=== PATIENT | male | born 1955 | race Caucasian/White ===

== ENCOUNTER 2019-10-12 17:18 | Emergency (ER) | payer SELFPAY ==
[~2019-10-12] VITALS: Ht 160 cm; Wt 72.6 kg
[2019-10-12 17:21] VITALS: BP 154/83
[2019-10-12] MEDS ORDERED: LIDOCAINE MPF 1% 10 MG/ML VIAL INJ ONE (17:25)
[2019-10-12 18:15] VITALS: BP 154/83
== END 2019-10-12 18:16 | disposition home or self-care (01) ==
LOC: MED 17:18
DX: S61.211A Laceration without foreign body of left index finger without damage to nail, initial encounter (principal); F17.210 Nicotine dependence, cigarettes, uncomplicated; I10 Essential (primary) hypertension; W26.8XXA Contact with other sharp object(s), not elsewhere classified, initial encounter; Y93.89 Activity, other specified; Y92.89 Other specified places as the place of occurrence of the external cause; Y99.8 Other external cause status
CPT/HCPCS: 12001; 99283; J2001